=== PATIENT | female | born 1935 | race Caucasian/White ===

== ENCOUNTER → 2017-02-28 | Outpatient (CLI) | payer MEDICARE, OTHER ==
[~2017-02-28] MED LIST: REGADENOSON 0.4 MG/5 ML SYRINGE ONE
== END | disposition home or self-care (01) ==
LOC: CFH 11:50
PROVIDERS: ATTEND Internal Medicine Cardiovascular Disease
DX: R07.89 Other chest pain (principal)
CPT/HCPCS: 78452; 93017; A9502; J2785

== ENCOUNTER 2018-11-21 07:34 | Observation (INO) | payer MEDICARE, OTHER ==
[~2018-11-21] VITALS: Ht 152.4 cm; Wt 73.2 kg
--- NOTE | 2018-11-21 07:46 | NUR ---
pt presents with c/o sweating and 'chest pressure' that started this morning around 0400 or 0500 and lasted only a couple minutes. no chest discomfort since this episode this morning. VS are stable. monitor and storage bin tender applied. pt refused blanket. er md in to pt room to assess.
[2018-11-21] MEDS ORDERED: FAMO25PO2 PO-COUM (07:58)
[2018-11-21] MEDS ORDERED: MONT10TA9 PO (07:58)
[2018-11-21] MEDS ORDERED: POTA20LI PO (07:58)
[2018-11-21] MEDS ORDERED: BENA40TA3 PO (07:58)
[2018-11-21] MEDS ORDERED: BUME0.5T PO (07:58)
[2018-11-21] MEDS ORDERED: ATOR-2 PO (07:58)
[2018-11-21] MEDS ORDERED: CARV12.52 PO (07:58)
[2018-11-21] MEDS ORDERED: ASPIRIN 81 MG TABLET CHEW PO ONE (08:00)
[2018-11-21 08:21] LABS: BASOPHILS # (AUTO) 0.03 x10^3/uL (0-0.1); BASOPHILS % (AUTO) 0 % (0-1); EOSINOPHILS # (AUTO) 0.32 x10^3/uL (0-0.4); EOSINOPHILS % (AUTO) 4 % (1-7); LYMPHOCYTES % (AUTO) 14 % (22-44); MD NO; MEAN CORPUSCULAR HEMOGLOBIN 28.2 pg (27.0-34.8); MEAN CORPUSCULAR HGB CONC 32.1 g/dL (32.4-35.8); MEAN CORPUSCULAR VOLUME 87.8 fL (80-100); MEAN PLATELET VOLUME 8.1 fL (7.4-10.4); MONOCYTES # (AUTO) 0.64 x10^3/uL (0.2-0.8); MONOCYTES % (AUTO) 7 % (2-9); NEUTROPHILS # (AUTO) 6.66 x10^3/uL (1.8-6.8); NEUTROPHILS % (AUTO) 75 % (42-75); PLATELET COUNT 289 x10^3/uL (130-400); RED BLOOD COUNT 5.05 x10^6/uL (3.82-5.3); RED CELL DISTRIBUTION WIDTH 14.4 % (9.6-15.2)
--- NOTE | 2018-11-21 08:21 | NUR ---
pt ambulatory to bathroom with steady gait.
[2018-11-21 08:25] LABS: INTERNATIONAL NORMALIZED RATIO 0.94 (0.93-1.1); PROTHROMBIN TIME 9.9 Seconds (9.6-11.5)
[2018-11-21 08:26] LABS: ALANINE AMINOTRANSFERASE 27 U/L (12-78); ALBUMIN 3.5 g/dL (3.4-5.0); ANION GAP 6 mmol/L (5-15); CALCIUM 8.9 mg/dL (8.5-10.1); CHLORIDE 107 mmol/L (98-107); CREATININE 0.69 mg/dL (0.55-1.02)
[2018-11-21 08:30] LABS: ALKALINE PHOSPHATASE 149 U/L (45-117); BILIRUBIN,TOTAL 0.6 mg/dL (0.2-1.0); TROPONIN I < 0.015 ng/mL (0.000-0.045)
[2018-11-21] MEDS ORDERED: VITA100C8 PO (08:34)
[2018-11-21] MEDS ORDERED: ASPI-496 PO (08:34)
[2018-11-21] MEDS ORDERED: BUDE10.2 INH (08:34)
[2018-11-21] MEDS ORDERED: ALBU18HF INFIL (08:34)
[2018-11-21] MEDS ORDERED: ASPIRIN 81 MG TABLET CHEW ONE (08:37)
--- NOTE | 2018-11-21 09:03 | NUR ---
[facility] into assess pt
[2018-11-21] MEDS ORDERED: ACETAMINOPHEN 325 MG TABLET PO PRN (09:30)
[2018-11-21] MEDS ORDERED: DOCUSATE 100 MG CAPSULE PO PRN (09:30)
[2018-11-21] MEDS: HEPARIN 5,000 UNITS/ML, 1ML SQ SCH ×2 (09:30→17:30)
[2018-11-21] MEDS ORDERED: morphine SULFATE 10 MG/ML, 1ML IVPush PRN (09:30)
[2018-11-21] MEDS ORDERED: BUMETANIDE 1 MG PO SCH (09:30)
[2018-11-21] MEDS ORDERED: ENALAPRILAT 1.25 MG/ML, 2ML IVPush PRN (09:30)
[2018-11-21] MEDS ORDERED: BISACODYL 10 MG SUPP PR PRN (09:30)
[2018-11-21] MEDS ORDERED: hydrALAzine 20 MG/ML, 1ML IVPush PRN (09:30)
[2018-11-21] MEDS ORDERED: POLYETHYLENE GLYCOL 17 GM PACKET PO PRN (09:30)
[2018-11-21] MEDS: FAMOTIDINE 20 MG/2 ML IVPush SCH ×2 (09:30→20:26)
--- NOTE | 2018-11-21 09:30 | NUR ---
pt refusing meds, educated on the function and rational behind all meds and still stating "I'd rather not take them." Pt ambulatory around room, connected to continuous personnel monitor, no needs at this time. WCTM, awaiting Tele bed.
--- NOTE | 2018-11-21 09:38 | NUR ---
PT PLACED ON HOSPITAL BED, NO NEEDS AT THIS TIME
[2018-11-21] MEDS ORDERED: FAMOTIDINE 20 MG/2 ML ONE (10:46)
[2018-11-21] MEDS ORDERED: HEPARIN 5,000 UNITS/ML, 1ML ONE (10:46)
--- NOTE | 2018-11-21 11:09 | NUR ---
spoke with Eleni in EKG department regarding stress test for pt, pt to go to stress test around [id number]. Pt notified, being kept NPO.
--- NOTE | 2018-11-21 11:21 | NUR ---
Pt reporting that she did take her betablocker this AM, Eleni called back & message left to confirm whether pt can continue w/ stress test today. Pt still NPO at this time. No needs. WCTM
[2018-11-21 11:41] LABS: FREE T4 (FREE THYROXINE) 1.07 ng/dL (0.76-1.46); THYROID STIMULATING HORMONE 0.318 mIU/L (0.358-3.740)
[2018-11-21 11:45] LABS: GAMMA GLUTAMYL TRANSPEPTIDASE < 3 U/L (5-55)
--- NOTE | 2018-11-21 12:06 | NUR ---
SPOKE W/ SISSY AGAIN, D/T PT'S BETABLOCKER THIS AM STRESS TEST MUST BE POSTPONED UNTIL TOMORRW. PT TO BE NPO AT MIDNIGHT TONIGHT & RECEIVE NO EVENING BETABLOCKERS. REPORT TO ODIN AT THIS TIME
--- NOTE | 2018-11-21 12:33 | NUR ---
pt transported via [facility] to 2, upon arrival tele monitor was not working so receptionist telephone operator directed flight/transport nurse to return pt to ed while monitor is repaired. RN to order pt's luch tray and update pt on POC
--- NOTE | 2018-11-21 13:27 | NUR ---
PT NOW BEING TRANSPORTED VIA HOSPITAL BED TO ADMIT BED AT THIS TIME.
[2018-11-21 14:20] VITALS: BP 166/70
[2018-11-21 15:20] LABS: TROPONIN I < 0.015 ng/mL (0.000-0.045)
[2018-11-21 19:06] VITALS: BP 168/78
[2018-11-21 20:06] VITALS: BP 173/50
[2018-11-21 20:07] VITALS: BP 191/74
[2018-11-21 20:08] VITALS: BP 169/81
[2018-11-21 20:24] VITALS: BP 167/82
[2018-11-21] MEDS: ATORVASTATIN 40 MG TABLET PO SCH (20:25)
[2018-11-21] MEDS: CARVEDILOL 12.5 MG TABLET PO SCH (20:26)
[2018-11-21 20:54] LABS: TROPONIN I < 0.015 ng/mL (0.000-0.045)
[2018-11-21] MEDS: (Budesonide/Formoterol Fumarate (Symbicort 160-4.5 Mcg Inhaler INH SCH (21:00)
[2018-11-22 01:12] VITALS: BP 152/72
[2018-11-22] MEDS: HEPARIN 5,000 UNITS/ML, 1ML SQ SCH ×3 (01:30→17:30)
[2018-11-22] MEDS: (Budesonide/Formoterol Fumarate (Symbicort 160-4.5 Mcg Inhaler INH SCH ×2 (07:58→20:47)
[2018-11-22] MEDS ORDERED: AMLO-150 PO (08:17)
[2018-11-22 08:52] VITALS: BP 180/80
[2018-11-22] MEDS ORDERED: ASPIRIN 81 MG TABLET EC PO SCH (09:00)
[2018-11-22] MEDS ORDERED: AMLODIPINE 5 MG TABLET PO SCH (09:00)
[2018-11-22] MEDS ORDERED: BUMETANIDE 1 MG TABLET PO SCH (09:00)
[2018-11-22] MEDS ORDERED: BENAZEPRIL 20 MG TABLET PO SCH (09:00)
[2018-11-22] MEDS: FAMOTIDINE 20 MG/2 ML IVPush SCH ×2 (09:43→20:44)
[2018-11-22] MEDS: CARVEDILOL 12.5 MG TABLET PO SCH ×2 (09:44→20:47)
[2018-11-22] MEDS ORDERED: AMLODIPINE 5 MG TABLET PO ONE (11:30)
[2018-11-22 11:33] LABS: BASOPHILS # (AUTO) 0.02 x10^3/uL (0-0.1); BASOPHILS % (AUTO) 0 % (0-1); EOSINOPHILS # (AUTO) 0.23 x10^3/uL (0-0.4); EOSINOPHILS % (AUTO) 4 % (1-7); LYMPHOCYTES # (AUTO) 1.14 x10^3/uL (1-3.4); LYMPHOCYTES % (AUTO) 18 % (22-44); MD NO; MEAN CORPUSCULAR HEMOGLOBIN 28.5 pg (27.0-34.8); MEAN CORPUSCULAR HGB CONC 32.4 g/dL (32.4-35.8); MEAN CORPUSCULAR VOLUME 87.9 fL (80-100); MEAN PLATELET VOLUME 8.4 fL (7.4-10.4); MONOCYTES # (AUTO) 0.56 x10^3/uL (0.2-0.8); MONOCYTES % (AUTO) 9 % (2-9); NEUTROPHILS # (AUTO) 4.28 x10^3/uL (1.8-6.8); NEUTROPHILS % (AUTO) 69 % (42-75); PLATELET COUNT 254 x10^3/uL (130-400); RED BLOOD COUNT 4.98 x10^6/uL (3.82-5.3); RED CELL DISTRIBUTION WIDTH 14.3 % (9.6-15.2)
[2018-11-22 11:43] LABS: ANION GAP 5 mmol/L (5-15); CHLORIDE 109 mmol/L (98-107); CHOLESTEROL, TOTAL 154 mg/dL (140-239); CREATININE 0.62 mg/dL (0.55-1.02); TRIGLYCERIDES 108 mg/dL (50-200); VLDL CHOLESTEROL 22 mg/dL (0-25)
[2018-11-22 11:46] LABS: CHOL/HDL RATIO 2.7; HDL CHOL % 38 % (28-40); HDL CHOLESTEROL (DIRECT) 58 mg/dL (40-60); LDL CHOLESTEROL,CALCULATED 74 mg/dL (54-169); LDL/HDL RATIO 1.3 (0.5-3.0)
[2018-11-22 12:49] VITALS: BP 150/76
[2018-11-22 14:33] LABS: CLOSTRIDIUM DIFFICILE ANTIGEN NEGATIVE; CLOSTRIDIUM DIFFICILE TOXIN NEGATIVE (Negative)
[2018-11-22 18:40] VITALS: BP 127/69
[2018-11-22] MEDS: ATORVASTATIN 40 MG TABLET PO SCH (20:45)
[2018-11-22 20:47] VITALS: BP 131/72
[2018-11-22] MEDS ORDERED: MONTELUKAST 10 MG TABLET PO SCH (21:00)
[2018-11-23 00:43] VITALS: BP 117/63
[2018-11-23] MEDS: HEPARIN 5,000 UNITS/ML, 1ML SQ SCH (01:30)
[2018-11-23] MEDS: ALBUTEROL SULFATE 2.5MG/0.5ML NPPB SCH ×3 (03:06→10:00)
[2018-11-23] MEDS: CARVEDILOL 12.5 MG TABLET PO SCH (06:49)
[2018-11-23 06:50] VITALS: BP 159/77
[2018-11-23] MEDS ORDERED: AMLODIPINE 10 MG TAB PO SCH (09:00)
[2018-11-23] MEDS ORDERED: BENAZEPRIL 20 MG TABLET PO SCH (09:00)
[2018-11-23] MEDS ORDERED: BUDESONIDE 0.5 MG/2 ML INHA NPPB SCH (09:00)
[2018-11-23] MEDS ORDERED: ALBUTEROL SULFATE 2.5 MG/3 ML ONE (09:38)
[2018-11-23] MEDS ORDERED: AMLO10TA8 PO (11:49)
[2018-11-23] MEDS ORDERED: BENA40TA3 PO (11:49)
== END 2018-11-23 13:35 | disposition home or self-care (01) ==
LOC: ED 08:06 → EDIP 08:43 → INTOOBSV 08:43 → 5SO 13:37 → DCLOUNGE 11-23 12:58
PROVIDERS: ADMIT Internal Medicine; ATTEND Internal Medicine
DX: R07.89 Other chest pain (principal); I16.0 Hypertensive urgency; I10 Essential (primary) hypertension; I25.10 Atherosclerotic heart disease of native coronary artery without angina pectoris; J45.909 Unspecified asthma, uncomplicated; E78.5 Hyperlipidemia, unspecified; Z79.899 Other long term (current) drug therapy; Z79.82 Long term (current) use of aspirin; Z87.891 Personal history of nicotine dependence; Z90.710 Acquired absence of both cervix and uterus; Z95.5 Presence of coronary angioplasty implant and graft; Z82.49 Family history of ischemic heart disease and other diseases of the circulatory system
CPT/HCPCS: 36415; 71045; 78452; 80048; 80053; 80061; 82977; 83036; 83690; 83735; 83880; 84439; 84443; 84484; 85025; 85610; 85730; 87324; 93005; 93017; 96374; 96376; 99284; A9502; C9898; G0378; J3490

== ENCOUNTER → 2019-08-07 | Outpatient (CLI) | payer MEDICARE, OTHER ==
[~2019-08-07] MED LIST changes: +ALBU18HF INFIL; +AMLO-150 PO; +AMLO10TA8 PO; +ASPI-496 PO; +ATOR-2 PO; +BENA40TA3 PO; +BUDE10.2 INH; +BUME0.5T2 PO; +CARV12.52 PO; +FAMO25PO2 PO-COUM; +MONT10TA11 PO; +POTA20LI2 PO; -REGADENOSON 0.4 MG/5 ML SYRINGE ONE; +VITA100C8 PO
== END | disposition home or self-care (01) ==
LOC: CFH 13:50
PROVIDERS: ATTEND Internal Medicine Cardiovascular Disease
DX: I08.2 Rheumatic disorders of both aortic and tricuspid valves (principal); I25.10 Atherosclerotic heart disease of native coronary artery without angina pectoris; I11.9 Hypertensive heart disease without heart failure
CPT/HCPCS: 93306